=== PATIENT | female | born 1990 ===

== ENCOUNTER 2018-10-20 11:33 | Inpatient (IN) | payer MEDICAID, OTHER ==
[2018-10-20] MEDS ORDERED: Dinoprostone* 10 MG VAG.SUPP VAGINAL ONE (12:31)
[2018-10-20] MEDS ORDERED: Buffered Lidocaine 1% SYRIN* 1 ML/SYRINGE INTRADERM ONE (12:31)
[2018-10-20] MEDS ORDERED: Lactated Ringers 1000 ML Bag* 1,000 ML IV ONE (12:31)
[2018-10-20] MEDS ORDERED: Vancomycin(*) 2,000 MG in NS 0.9% 500 ML* 500 ML IVPB ONE (12:40)
--- NOTE | 2018-10-20 12:52 | HP ---
General Information - Reason for Visit 28yo, , IUP@39+3, here for cervical ripening and an induction of labor - General Information Maternal Age: 28 Grav: 3 Para: 2 SAB: 0 IEA: 0 Estimated Due Date: 10/24/18 Determined By: Early Ultrasound Gestational Age in Weeks/Days: 39+3 Maternal Blood Type and Rh: AB Positive - Results this Serology/RPR Result: Non-Reactive Rubella Result: Non-Immune HBsAg Result: Negative HIV Result: Negative GBS Culture Result: Positive Past Medical History Delivery History: Hx Complicated Vaginal Delivery - G1 IOL d/t psych admission, adopted out; G2 baby adopted out Pertinent Past Medical History: See Records - Drug addiction, incarcerated, HCV, bipolar Pertinent Past Surgical History: None Family History Comment: Pt adopted, unknown family hx - Antepartal Records Antepartal Records: Reviewed, Complicated by: - Incarcerated, hx of drug addiction (use this ), HCV, GBS+, rubella non-immune, bipolar (no meds) Review of Systems Constitutional: Comfortable CV Complaint: No Respiratory: Shortness of Breath: No Gastrointestinal: No Nausea/Vomiting, Normal Bowel Movement Genitourinary: No Dysuria, No Bleeding, No Leaking Fluid Musculoskeletal: No Complaint, No Epigastric Pain Neurological: No Headache, No Visual Changes Movement: Normal Exam Allergies/Adverse Reactions: Allergies Penicillins Allergy (Severe, Verified 10/20/18 12:52) Swelling Temp 98.6, HR 77, RR 17, BP 114/74 - Measurements Height: 5 ft 3 in Weight: 169 lb Weight in lbs: [id number] Body Mass Index (BMI): 29.9 Pre- Weight: 120 lb - Exam Breast: Breast Exam Deferred CVA: No CVA Tenderness Extremities: No Edema Heart: Normal Rhythm/Heart Sounds HEENT: No Significant Findings Lungs: Clear Bilaterally Rectal: Rectal Exam Deferred Reflexes: DTR 2+ - Abdominal Exam Abdomen Exam: Non-Tender - Ultrasound/Biophysical Profile Ultrasound Status: Not Done Targeted Exam Findings Estimated Weight: 7lbs Cervical Exam: 1cm Effacement: 50% Station: High Presenting Part: Vertex - Vtx by limited bedside exam Membrane Status: Intact Bleeding/Discharge: None EFM Findings - External Monitor Findings Baseline Heart Rate: 135 External Monitor Findings: Accelerations Present, No Pattern of Variable or Late Decelerations, Variability Moderate External Monitor Findings Comment: No evidence of metabolic acidemia Contractions: Irregular, Mild Assessment/Plan - Assessment 28yo, , IUP@39+3, her for cervical ripening and IOL Pt is currently incarcerated and accompanied by 2 [facility] complicated by: HCV, PCN allergy, hx of substance use, bipolar hx: GBS+, rubella non-immune Labor evaluation in [place] last night, evidence of a UTI, opted to not tx with oral abx given IOL today and GBS+ No evidence of acidemia Based on VE, Granados score - 4, need for cervical ripening - Obstetrical Risk Factors Obstetrical Risk Factors: GBS Positive, Psychosocial Issues - incarcerated - Plan Plan: Induction - Start GBS prophylaxis , Cervical Ripening, Admit - Anticipate Vaginal Delivery Plan Comment: Admit to L&D Start GBS prophylaxis PARQ discussion about ripening options. In agreement with provider, pt opts for Cervidil placement. VE prn Anticipate progression to active labor - Date/Time of Admission Date of Admission: 10/20/18 Time of Admission: 12:15
[2018-10-20] MEDS ORDERED: Lactated Ringers 1000 ML Bag* 1,000 ML IV SCH (13:00)
[2018-10-20 14:28] LABS: ABS Basophils 0.1 10^3/ul (0-0.2); ABS Eosinophils 0.3 10^3/ul (0-0.6); ABS Lymphocytes 2.8 10^3/ul (1.0-4.8); ABS Monocytes 0.8 10^3/ul (0-0.8); Eosinophil % 2.9 %; Hematocrit 36 % (35-47); Hemoglobin 11.8 g/dL (12.0-16.0); Lymphocyte % 25.3 %; Mean Corpuscular HGB Conc 33 g/dL (31-36); Mean Corpuscular Hemoglobin 29 pg (27-31); Mean Corpuscular Volume 86 fL (80-97); Mean Platelet Volume 10.5 fL (7.4-10.4); Nucleated Red Blood Cells % 0.1; Platelet Count 202 10^3/uL (150-450); Red Blood Count 4.14 10^6 /uL (3.70-4.87); Red Cell Distribution Width 13 % (10-15)
[2018-10-20 15:05] LABS: Urine Benzodiazepine Screen None Detected (None Detect); Urine Opiates Screen None Detected (None Detect)
--- NOTE | 2018-10-20 17:36 | PN ---
Progress Note - Progress Note Date of Service: 10/20/18 Note: Cervidil placed without complication Pt tolerated well Monitoring per hospital protocol Anticipate progression to active labor
--- NOTE | 2018-10-20 17:47 | PN ---
Progress Note - Progress Note Date of Service: 10/20/18 Note: S: Called to the bedside by RN. Pt with extreme pruritus. RN reduced rate of vancomycin infusion, pt still symptomatic. Pt states severe PCN allergy as child, anaphylaxis vs. angioedema. O: IA: 135 UCs: occasional contraction, good resting tone VE: deferred Vancomycin discontinued, over 1gram infused A: IUP at 39+3 No evidence of metabolic acidemia Not in active labor Pruritus improving following d/c of antibiotic P: Consultation with Hussain Perdomo MD. He recommends discussing options with pt. Low risk of allergic reaction to cefazolin vs. low risk of baby acquiring GBS. Risks vs. benefits discussion. Anticipate progression to active labor
--- NOTE | 2018-10-20 18:04 | PN ---
Progress Note - Progress Note Date of Service: 10/20/18 Note: PARQ discussion about risks of cefazolin vs. GBS infection Pt asked appropriate questions If undelivered in 12 hours, pt will opt for trial of cefazolin
--- NOTE | 2018-10-21 01:26 | PN ---
Progress Note - Progress Note Date of Service: 10/21/18 Note: At bedside, pt sleeping 12 hours since Cervidil placed Will allow pt to sleep, RN to call when pt awake
--- NOTE | 2018-10-21 01:50 | PN ---
Progress Note - Progress Note Date of Service: 10/21/18 Note: S: Pt awake Uncomfortable with lower abdominal pain vs contractions O: VE: /soft Cervidil removed A: IUP at 39+3 Not in active labor P: Plan for pt to receive Benadryl After rest, start likely start Pitocin in the morning Pt in agreement with plan
[2018-10-21] MEDS ORDERED: diPHENhydraMINE IV* 50 MG/ML 1 ml VIAL (BENADRYL) IV PRN (01:52)
[2018-10-21] MEDS ORDERED: Vancomycin(*) 1,000 MG in NS 0.9% 250 ML* 250 ML IVPB SCH (02:30)
[2018-10-21] MEDS ORDERED: Oxytocin in LR* 20 UNITS/1,000 ML BAG IVPB SCH (09:00)
--- NOTE | 2018-10-21 09:45 | PN ---
Progress Note - Progress Note Date of Service: 10/21/18 SOAP: Subjective: Pt feeling well, reports she slept well last night. Denies UCs at this time. Objective: Cervical exam deferred, was last checked at 0100 was 1cm. FHR: Baseline 135, moderate variability, no accels, no decels UCs: mild, irregular Membranes intact BP:108/68 T: 99.3 Assessment: 28 year old undergoing elective IOL at 39 4/7 weeks gestation d/t incarcerated status. No evidence of acidemia. Not in active labor. Plan: Discussed options with pt. Given her multiparity, recommend trial of Pitocin. Pt agrees. Will initiate low dose Pitocin, continuous EFM. WIll do trial of Ancef at onset active labor, monitor closely for signs of allergic reaction.
[2018-10-21] MEDS ORDERED: ceFAZolin 1 GM ADVAN(*) 1 GM in NS 0.9% 50 ML* 50 ML IVPB SCH (13:00)
--- NOTE | 2018-10-21 13:17 | PN ---
Progress Note - Progress Note Date of Service: 10/21/18 SOAP: Subjective: Pt reports increased intensity of ctx. Objective: Cervix: 2cm/ 60%/ vtx/ -2 FHR: Baseline 135/ moderate variability/ + accels/ no decels UCs: Q 4-6 minutes, mild to moderate Membranes intact Assessment: Pt appears to be starting to get more active, although not yet in active labor. No evidence of acidemia. Plan: Discussed options for pain management. Pt elects to try the tub. Would like epidural eventually, but would like to wait for now. Continue Pitocin augmentation.
--- NOTE | 2018-10-21 15:20 | PN ---
Progress Note - Progress Note Date of Service: 10/21/18 SOAP: Subjective: Pt reports ctx stronger, coping well. Did not like tub or nitrous. Does not feel that she needs epidural yet. Objective: Cervical exam deferred. FHR: Baseline 125/ moderate variability/ + accels/ no decels UCs: Q3 minutes Pitocin at 16 mu/min Membranes intact Assessment: Pt appears to be getting more active. No evidence of acidemia. Plan: Will recheck cervix in a couple hours or if pt feeling ready for epidural.
[2018-10-21] MEDS ORDERED: OBEPIDURAL* 250 ML EPIDURAL ONE (15:35)
--- NOTE | 2018-10-21 15:45 | PN ---
Progress Note - Progress Note Date of Service: 10/21/18 SOAP: Subjective: Pt with difficulty coping, requests epidural. Objective: Cervix: 3cm/ 60%/ -2 (pt with some difficulty tolerating exam) FHR:Baseline 135/ moderate variability/ + accels/ no decels UCs: Q 2-3 minutes, moderate strength Membranes intact Assessment: Pt appears to be getting more active, difficulty coping. No evidence of acidemia. Plan: Discussed options with pt. She would like to get an epidural, even though it is still fairly early in labor. This seems a reasonable option as she has tried both nitrous oxide and the tub as well as warm packs, position changes. Will continue Pitocin induction. Will wait until pt is at more advanced dilation before initiating abx per consultation with Dr. Bob.
[2018-10-21] MEDS ORDERED: Lactated Ringers 1000 ML Bag* 1,000 ML IV ONE (16:25)
[2018-10-21] MEDS ORDERED: Sodium Citrate/Citric Acid* 15 ML UDC PO PRN (16:25)
[2018-10-21] MEDS ORDERED: Phenylephrine 40 MCG/ML SYRINGE IV PUSH PRN ×2 (16:25)
[2018-10-21] MEDS ORDERED: OBEPIDURAL* 250 ML EPIDURAL SCH (17:00)
[2018-10-21] MEDS ORDERED: Lactated Ringers 1000 ML Bag* 1,000 ML IV SCH (17:00)
--- NOTE | 2018-10-21 17:05 | PN ---
Progress Note - Progress Note Date of Service: 10/21/18 SOAP: Subjective: Pt comfortable with epidural. Right side more numb than left. Objective: Cervical exam deferred. FHR: Baseline 125/ moderate variability/ + accels/ isolated deceleration to 110 lasting <1 minute, ctx not tracing at that time, unclear if late or early UCs: Q3 minutes Pitocin at 16 mu/min Assessment: Pt comfortable with epidural. FHR Category I. Plan: Will recheck cervix in about 2 hours. Continue Pitocin augmentation.
--- NOTE | 2018-10-21 17:49 | PN ---
Progress Note - Progress Note Date of Service: 10/21/18 Note: FHR exhibited several variable decelerations, each less than a minute in duration. Pt was lying on her back at the time. Decelerations resolved with position change. Pitocin reduced by half to 8 mu/min and IV bolus initiated. FHR currently Category I. Cervical exam: 3-4 cm/ 90%/ -1/ vtx/ bulging bag. Consulted with Dr. Bob regarding antibiotics given pt's hx allergy to PCN and reaction to vancomycin this hospitalization. Recommends considering AROM, then starting Cefazolin. Will attempted AROM shortly if FHR continues to be Category I.
[2018-10-21] MEDS: ceFAZolin 1 GM ADVAN(*) 1 GM in NS 0.9% 50 ML* 50 ML IVPB SCH ×2 (18:16→18:17)
[2018-10-21] MEDS ORDERED: diPHENhydraMINE PO* 50 MG PO ONE (18:57)
--- NOTE | 2018-10-21 19:34 | PN ---
Progress Note - Progress Note Date of Service: 10/21/18 Note: AROM performed to clear fluid, tolerated well by pt. Initiated Cefazolin per IV following AROM. However, pt soon developed pruritis and a rash. Antibiotic was discontinued and PO Benadryl administered. No wheezing or respiratory distress. No facial edema. Consulted with Dr. Bob, no other recommended antibiotics for GBS, will not attempt further antibiotic administration.
--- NOTE | 2018-10-21 20:28 | PN ---
Progress Note - Progress Note Date of Service: 10/21/18 SOAP: Subjective: Pt reports increased pressure, but still generally comfortable. Objective: FHR with frequent variable decelerations, generally lasting less than a minute with good return to baseline. Variability moderate. Variable decels occur in all positions the pt is in. Pt has had several fluid boluses. Cervix: 5cm/ 90%/ 0/ vtx. Fluid clear Temp: 97.7 Pitocin at 8mu/min Assessment: Pt making slow progress. Category II FHR tracing. No evidence of chorioamnionitis. GBS positive with no abx prophylaxis d/t pt hypersensitivity to all recommended abx which strain is not resistant to. Plan: Consulted with Dr. Bob and she reviewed FHR tracing. At this time will continue Pitocin at 8 mu/min, continue position changes, and recheck pt 2 hours from last exam.
--- NOTE | 2018-10-21 22:04 | PN ---
Progress Note - Progress Note Date of Service: 10/21/18 SOAP: Subjective: Pt reports increased pressure, denies urge to push. Also feeling nauseous. Objective: FHR: occasional variable decels, less frequent and shorter in duration than previously, baseline 130/ moderate variability/ + accels UCs: Q3 minutes Temp: 98.1 BP: 122/72 Clear fluid Assessment: FHR improved from previously, no evidence of chorioamnionitis. Plan: Cervical exam deferred at this time, will recheck in 1-2 hours or as needed. Continue Pitocin augmentation.
--- NOTE | 2018-10-21 23:49 | PN ---
Progress Note - Progress Note Date of Service: 10/21/18 SOAP: Subjective: Pt shaky, nauseous, states she feels cold, as well as increased discomfort with ctx Objective: Cervix: 9 cm/ 100%/ +1 station FHR: baseline 145, alternating moderate and minimal variability, occasional variable decelerations UCs: 2-3 minutes Pitocin at 8 mu/min Temp: 99.3 Assessment: Pt making good progress, FHR with some variable decels but with good recovery Plan: Anticipate
[2018-10-22] MEDS ORDERED: Measles, Mumps,Rubella VACC* 0.5 ML/VIAL SUBCUT ONE (00:41)
[2018-10-22] MEDS ORDERED: Witch Hazel PAD* JAR TOPICAL PRN (00:41)
[2018-10-22] MEDS ORDERED: Acetaminophen TAB* 325 MG PO PRN (00:41)
[2018-10-22] MEDS ORDERED: Glycerin ADULT SUPP PR PRN (00:41)
[2018-10-22] MEDS ORDERED: Dibucaine 1% 28.35 GM TUBE PR PRN (00:41)
--- NOTE | 2018-10-22 00:51 | PROCNOTE ---
[facility] OB: Delivery Note - Delivery A Date of : 10/22/18 Time of : 00:05 [place] Sex: Male Weight at : 3.005 kg Score 1 Minute: 8 Score 5 Minutes: 9 Gestational Age in Weeks and Days at Delivery: 39 Weeks and 5 Days Delivery Method: Spontaneous Vaginal Labor: Spontaneous Did Patient attempt ?: N/A, No Previous Amniotic Fluid: Clear Anesthesia/Analgesia: CEI for Labor, Nitrous-Labor Anesthesia Comment: nitrous only briefly Delivered By: Jane Skinner - Nursery Level of Nursery: Regular/Bedside - Perineum Perineal Injury: None/Intact Perineal Repair: None - Events Delivery Events of Note: Pitocin During Labor, Supplemental O2 to Mother, Antibiotics Indicated - Not Given - Additional Delivery Notes Additional Delivery Notes: Pt admitted for elective term induction of labor. After receiving one dose of Cervidil for cervical ripening induction initiated with Pitocin. Pt made slow but steady progress. AROM performed to clear fluid. FHR with periods of recurrent variable decelerations not responsive to position changes or fluid boluses, but with good return to baseline and moderate variability. After brief trial of nitrous oxide pt requested and received an epidural with good pain relief. Pt was GBS positive, but with PCN allergy and during labor had allergic reactions to both Ancef and vancomycin. GBS strain was resistant to Clindamycin , so unable to give complete antibiotic prophylaxis. Pt eventually progressed to full dilation and began to push. Pt pushed effectively with steady descent to , then coached through slow, controlled delivery of the head. Shoulder followed without difficulty. Infant placed on maternal abdomen, dried and stimulated with vigorous cry, FHR > 100. After waiting for cord pulsation to cease, cord clamped x2 and cut by pt. Placenta soon delivered with gentle cord traction and maternal pushing effort, ever and complete. Minimal bleeding followed, fundus was firm. Pitocin increased to 150 cc/ hr. Examination of the perineum found pt to be intact. Pt and infant stable at this time. Pt currently incarcerated, social work consult in progress.
[2018-10-22] MEDS ORDERED: Lactated Ringers 1000 ML Bag* 1,000 ML IV SCH (01:00)
[2018-10-22] MEDS ORDERED: Oxytocin in LR* 20 UNITS/1,000 ML BAG IVPB SCH (01:00)
[2018-10-22] MEDS: ceFAZolin 1 GM ADVAN(*) 1 GM in NS 0.9% 50 ML* 50 ML IVPB SCH ×2 (05:06→05:07)
[2018-10-22] MEDS: Ibuprofen TAB* 600 MG PO PRN ×3 (08:00→21:02)
[2018-10-22] MEDS: Docusate CAP* 100 MG PO SCH ×3 (08:00→21:02)
[2018-10-22] MEDS ORDERED: Calcium Carbonate CHEW TAB* 500 MG (TUMS) PO PRN (13:13)
[2018-10-22] MEDS ORDERED: Hydrocortisone 1% CREAM* 30 GM TUBE TOPICAL PRN (15:07)
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
[2018-10-23] MEDS: Ibuprofen TAB* 600 MG PO PRN ×4 (03:31→21:35)
[2018-10-23 08:16] LABS: ABS Basophils 0.1 10^3/ul (0-0.2); ABS Eosinophils 0.3 10^3/ul (0-0.6); ABS Monocytes 0.9 10^3/ul (0-0.8); ABS Neutrophils 7.2 10^3/ul (1.5-7.7); Eosinophil % 2.8 %; Hematocrit 32 % (35-47); Hemoglobin 10.6 g/dL (12.0-16.0); Lymphocyte % 26.1 %; Mean Corpuscular HGB Conc 34 g/dL (31-36); Mean Corpuscular Hemoglobin 28 pg (27-31); Mean Corpuscular Volume 85 fL (80-97); Mean Platelet Volume 10.2 fL (7.4-10.4); Platelet Count 154 10^3/uL (150-450); Red Blood Count 3.73 10^6 /uL (3.70-4.87); Red Cell Distribution Width 13 % (10-15); White Blood Count 11.6 10^3/uL (3.5-10.8)
[2018-10-23] MEDS ORDERED: Ferrous Gluconate TAB* 324 MG TAB PO SCH (09:00)
[2018-10-23] MEDS: Docusate CAP* 100 MG PO SCH ×3 (09:34→21:35)
[2018-10-24] MEDS: Ibuprofen TAB* 600 MG PO PRN ×2 (03:31→09:10)
[2018-10-24 08:15] VITALS: BP 114/55
[2018-10-24] MEDS: Docusate CAP* 100 MG PO SCH (09:11)
== END 2018-10-24 11:50 | DRG 560 ==
LOC: MCHOBOUT 11:33 → MCHOB 12:19
PROVIDERS: ADMIT Advanced Practice Midwife; ATTEND Midwife
PROC: 10E0XZZ Delivery of Products of Conception, External Approach (ICD-10-PCS; principal; 2018-10-22)
PROC: 3E033VJ Introduction of Other Hormone into Peripheral Vein, Percutaneous Approach (ICD-10-PCS; 2018-10-22)
PROC: 10907ZC Drainage of Amniotic Fluid, Therapeutic from Products of Conception, Via Natural or Artificial Opening (ICD-10-PCS; 2018-10-22)
DX: O99.824 Streptococcus B carrier state complicating childbirth (principal); Z37.0 Single live birth; O99.344 Other mental disorders complicating childbirth; O99.324 Drug use complicating childbirth; F19.10 Other psychoactive substance abuse, uncomplicated; O76 Abnormality in fetal heart rate and rhythm complicating labor and delivery; F31.9 Bipolar disorder, unspecified; O99.334 Smoking (tobacco) complicating childbirth; F17.210 Nicotine dependence, cigarettes, uncomplicated; F43.10 Post-traumatic stress disorder, unspecified; F60.89 Other specific personality disorders; Z3A.39 39 weeks gestation of pregnancy
CPT/HCPCS: 36415; 80307; 85025; 86850; 86900; 86901; 90707; A9270-GY; J0690; J1200; J3370